=== PATIENT | male | born 1950 | race Caucasian/White ===

== ENCOUNTER → 2022-01-23 15:12 | Outpatient (CLI) | payer MEDICARE, OTHER, SELFPAY ==
[2022-01-24 13:24] LABS: HSV 2 IGG AB < 0.91 index (0.00-0.90); Var-Zoster Immunity Screen 2081 index (Immune >165)
[2022-01-24 19:36] LABS: Varicella IgM Antibody <0.91 index (0.00-0.90)
== END ==
PROVIDERS: PCP Family Medicine; Referring Provider Ophthalmology; Visit Provider Ophthalmology
DX: B02.39 Other herpes zoster eye disease (principal); L08.9 Local infection of the skin and subcutaneous tissue, unspecified
CPT/HCPCS: 36415; 86695; 86696; 86787